=== PATIENT | female | born 1970 | race Caucasian/White ===

== ENCOUNTER 2017-04-06 16:35 | Emergency (ER) | payer BC | END 2017-04-06 19:00 | disposition home or self-care (01) | LOC: D.ER 16:35 | DX: M54.12 Radiculopathy, cervical region (principal); I10 Essential (primary) hypertension; E11.9 Type 2 diabetes mellitus without complications ==

== ENCOUNTER 2017-10-09 10:53 | Emergency (ER) | payer MEDICAID ==
[~2017-10-09] VITALS: Ht 157.5 cm; Wt 83.6 kg
[2017-10-09 11:19] VITALS: Ht 157.5 cm; Wt 83.6 kg
[2017-10-09] MEDS ORDERED: XANAX1 MG PO (11:26)
[2017-10-09] MEDS ORDERED: ALBUTEROL2.5 MG/3 M INH (11:26)
[2017-10-09] MEDS ORDERED: ANORO ELLIPTA1 EACH INH (11:27)
[2017-10-09] MEDS ORDERED: LIPITOR20 MG PO (11:27)
[2017-10-09] MEDS ORDERED: ABILIFY2 MG PO (11:27)
[2017-10-09] MEDS ORDERED: SOMA350 MG PO (11:28)
[2017-10-09] MEDS ORDERED: ESTRACE2 MG PO (11:29)
[2017-10-09] MEDS ORDERED: CELEXA40 MG PO (11:29)
[2017-10-09] MEDS ORDERED: FLUTICASONE PRO16 GM NASAL (11:30)
[2017-10-09] MEDS ORDERED: BUTALB-APAP-CA1 EACH PO (11:31)
[2017-10-09] MEDS ORDERED: HYSINGLA ER20 MG PO (11:31)
[2017-10-09] MEDS ORDERED: KLOR-CON 1010 MEQ PO (11:31)
[2017-10-09] MEDS ORDERED: HYDROCODONE-APA1 TAB PO (11:31)
[2017-10-09] MEDS ORDERED: LYRICA50 MG PO (11:32)
[2017-10-09] MEDS ORDERED: GLUCOPHAGE500 MG PO (11:32)
[2017-10-09] MEDS ORDERED: OMEPRAZOLE20 M1 PO (11:33)
[2017-10-09] MEDS ORDERED: OXYBUTYNIN CHLOR5 MG PO (11:33)
[2017-10-09] MEDS ORDERED: PROAIR HFA8.5 GM INH (11:33)
[2017-10-09] MEDS ORDERED: MAXZIDE 75/501 TAB PO (11:34)
[2017-10-09] MEDS ORDERED: ZOMIG5 MG/SPRAY NS (11:35)
[2017-10-09] MEDS ORDERED: LIDOCAINE50 GM TOPICAL (11:35)
[2017-10-09 12:11] LABS: BASOPHILS 0.3 % (0-2); EOSINOPHILS 3.7 % (0-7); HEMATOCRIT 45.1 % (36.0-48.0); HEMOGLOBIN 15.8 g/dL (12-16); IMMATURE GRANULOCYTES 0.2 % (0-5); LYMPHOCYTES 34.7 % (15-50); MCH 32.6 pg (26.0-34.0); MCV 93.2 fL (80.0-100.0); MEAN PLATELET VOLUME 10.9 fL (7.4-10.4); NEUTROPHILS 56.1 % (40-80); RBC 4.84 10x6/uL (4.00-5.40); RDW 13.4 % (11.5-14.5); WBC 6.4 10x3/uL (4.8-10.8)
[2017-10-09 12:17] LABS: PLATELET COUNT 163 10x3/uL (130-400)
[2017-10-09 12:21] LABS: APTT 27.5 SECONDS (22.8-39.4)
[2017-10-09 12:22] LABS: INR 0.92 (0.85-1.17); PROTIME 11.9 SECONDS (11.6-15.0)
[2017-10-09 12:23] LABS: D-DIMER-QUANTITATIVE < 0.27 ug/mLFEU (0.20-0.54)
[2017-10-09 12:28] LABS: ALBUMIN 3.4 g/dL (3.4-5.0); ALKALINE PHOSPHATASE 88 U/L (46-116); ALT (SGPT) 35 U/L (10-68); BILIRUBIN - TOTAL 0.22 mg/dL (0.2-1.3); CALC OSMOLALITY 276 mosm/kg (275-300); CARBON DIOXIDE 32.8 mmol/L (21.0-32.0); CHLORIDE - SERUM 104 mmol/L (98-107); CREATININE - SERUM 0.6 mg/dL (0.6-1.3); GLUCOSE 132 mg/dL (74-106); POTASSIUM - SERUM 3.9 mmol/L (3.5-5.1); PROTEIN - SERUM 6.7 g/dL (6.4-8.2); SODIUM 139 mmol/L (136-145); UREA NITROGEN 4 mg/dL (7-18); eGFR NON AFRICAN AMERICAN > 90 mL/min (90-120)
[2017-10-09 15:30] VITALS: BP 122/068
== END 2017-10-09 15:15 | disposition home or self-care (01) ==
LOC: D.ER 10:53
PROVIDERS: Family Medicine
DX: M25.562 Pain in left knee (principal); M79.662 Pain in left lower leg; M17.12 Unilateral primary osteoarthritis, left knee; E11.9 Type 2 diabetes mellitus without complications; G40.909 Epilepsy, unspecified, not intractable, without status epilepticus; Q05.9 Spina bifida, unspecified; K21.9 Gastro-esophageal reflux disease without esophagitis; F17.200 Nicotine dependence, unspecified, uncomplicated

== ENCOUNTER 2018-08-17 16:17 | Emergency (ER) | payer MEDICAID ==
[~2018-08-17 16:17] MED LIST: ABILIFY2 MG PO; ALBUTEROL2.5 MG/3 M INH; ANORO ELLIPTA1 EACH INH; BUTALB-APAP-CA1 EACH PO; CELEXA40 MG PO; ESTRACE2 MG PO; FLUTICASONE PRO16 GM NASAL; GLUCOPHAGE500 MG PO; HYDROCODONE-APA1 TAB PO; HYSINGLA ER20 MG PO; KLOR-CON 1010 MEQ PO; LIDOCAINE50 GM TOPICAL; LIPITOR20 MG PO; LYRICA50 MG PO; MAXZIDE 75/501 TAB PO; OMEPRAZOLE20 M1 PO; OXYBUTYNIN CHLOR5 MG PO; PROAIR HFA8.5 GM INH; SOMA350 MG PO; XANAX1 MG PO; ZOMIG5 MG/SPRAY NS
[2018-08-17 16:34] VITALS: BMI 34.8
[2018-08-17] MEDS ORDERED: ANORO ELLIPTA1 EACH INH (16:38)
[2018-08-17] MEDS ORDERED: BUTALB-APAP-CA1 EACH PO ×2 (16:40→17:00)
[2018-08-17] MEDS ORDERED: CYCLOBENZAPRINE10 MG PO (16:40)
[2018-08-17] MEDS ORDERED: AMBIEN5 MG PO (16:43)
[2018-08-17] MEDS ORDERED: ZOFRAN ODT4 MG/UDTAB PO (17:00)
[2018-08-17 17:30] VITALS: BP 158/99
== END 2018-08-17 17:43 | disposition home or self-care (01) ==
LOC: D.ER 16:17
DX: G43.909 Migraine, unspecified, not intractable, without status migrainosus (principal)

== ENCOUNTER 2018-08-19 17:10 | Emergency (ER) | payer MEDICAID ==
[~2018-08-19] VITALS: Ht 157.5 cm; Wt 90.9 kg
[~2018-08-19 17:10] MED LIST changes: +AMBIEN5 MG PO; +CYCLOBENZAPRINE10 MG PO; +ZOFRAN ODT4 MG/UDTAB PO
[2018-08-19 17:14] VITALS: Ht 157.5 cm; Wt 90.9 kg
[2018-08-19 19:05] VITALS: BP 134/87
== END 2018-08-19 19:05 | disposition home or self-care (01) ==
LOC: D.ER 17:10
DX: G43.009 Migraine without aura, not intractable, without status migrainosus (principal)

== ENCOUNTER 2018-08-25 23:47 | Inpatient (IN) | payer MEDICAID ==
[~2018-08-25] VITALS: Ht 157.5 cm; Wt 81.2 kg
[2018-08-26 00:35] LABS: BASOPHILS 0.6 % (0-2); EOSINOPHILS 2.7 % (0-7); HEMATOCRIT 39.8 % (36.0-48.0); HEMOGLOBIN 14.3 g/dL (12-16); IMMATURE GRANULOCYTES 0.4 % (0-5); LYMPHOCYTES 33.1 % (15-50); MCH 30.8 pg (26.0-34.0); MCHC 35.9 g/dL (31.0-37.0); MCV 85.8 fL (80.0-100.0); MEAN PLATELET VOLUME 10.8 fL (7.4-10.4); MONOCYTES 6.1 % (2-11); NEUTROPHILS 57.1 % (40-80); RBC 4.64 10x6/uL (4.00-5.40); RDW 13.1 % (11.5-14.5); WBC 8.5 10x3/uL (4.8-10.8)
[2018-08-26 00:38] LABS: PLATELET COUNT 125 10x3/uL (130-400)
[2018-08-26 00:41] LABS: APPEARANCE HAZY (CLEAR); BILIRUBIN NEGATIVE (NEGATIVE); COLOR YELLOW (YELLOW); GLUCOSE NEGATIVE (NEGATIVE); KETONE NEGATIVE (NEGATIVE); NITRITE POSITIVE (NEGATIVE); PROTEIN 1+ mg/dL (NEGATIVE); UROBILINOGEN NORMAL (NORMAL)
[2018-08-26 00:43] LABS: APTT 28.9 SECONDS (22.8-39.4); INR 1.09 (0.85-1.17); PROTIME 13.6 SECONDS (11.6-15.0)
[2018-08-26 00:46] LABS: BACTERIA MODERATE /hpf (NONE SEEN); EPITHELIAL CELLS 0-5 /hpf (0-5); RED CELLS - URINE 0-5 /hpf (0-5)
[2018-08-26 00:50] LABS: ALBUMIN 3.1 g/dL (3.4-5.0); ALKALINE PHOSPHATASE 149 U/L (46-116); ALT (SGPT) 63 U/L (10-68); BILIRUBIN - TOTAL 0.37 mg/dL (0.2-1.3); CALC OSMOLALITY 272 mosm/kg (275-300); CALCIUM 9.1 mg/dL (8.5-10.1); CHLORIDE - SERUM 95 mmol/L (98-107); CREATININE - SERUM 0.7 mg/dL (0.6-1.3); PROTEIN - SERUM 6.6 g/dL (6.4-8.2); SODIUM 133 mmol/L (136-145); UREA NITROGEN 9 mg/dL (7-18); eGFR NON AFRICAN AMERICAN > 90 mL/min (90-120)
[2018-08-26 00:51] LABS: GLUCOSE 240 mg/dL (74-106)
[2018-08-26 01:05] LABS: CKMB 0.2 U/L (0.0-3.6); CREATINE KINASE 68 UL (21-215)
[2018-08-26 01:06] LABS: TROPONIN-I < 0.017 ng/mL (0.000-0.060)
[2018-08-26 02:30] VITALS: BP 111/78
[2018-08-26] MEDS ORDERED: LEVAQUIN750 MG PO (02:36)
--- NOTE | 2018-08-26 03:00 | NUR ---
ORDERED ROCEPHIN DISCONTINUED AT 0300. IV FLUSHED AFTER DC'ING MEDICATION. ORDERED LEVAQUIN STARTED.
[2018-08-26 03:25] VITALS: BP 109/78
[2018-08-26 04:34] VITALS: BP 93/49; BMI 32.8
--- NOTE | 2018-08-26 08:04 | NUR ---
PATIENT RECIEVED FROM PREVIOUS SHIFT RESTING IN BED WITH NO NEEDS VOICED. REPORTS THAT SHE IS FEELING MUCH BETTER THIS AM. NO FEVER OR CHILLS LAST SHIFT.
[2018-08-26 08:55] VITALS: BP 95/71
[2018-08-26 14:49] VITALS: Ht 157.5 cm; Wt 81.2 kg
[2018-08-26 17:34] VITALS: BP 148/67
[2018-08-26 20:00] VITALS: BP 106/61
--- NOTE | 2018-08-26 21:00 | NUR ---
FSBS 344 8 UNITS OF INSULIN GIVEN PER SS.
[2018-08-27] VITALS: BP 98/58
--- NOTE | 2018-08-27 00:30 | NUR ---
PT FEVER 101.0 GIVEN TYLENOL PER MAY. WILL FALLOW UP
[2018-08-27 04:00] VITALS: BP 105/61
--- NOTE | 2018-08-27 05:20 | NUR ---
I have reviewed this patient and I concur with the Shift Assessment completed by the Licensed Practical Nurse today this shift.
--- NOTE | 2018-08-27 07:25 | NUR ---
PATIENT RECIEVED FROM PREVIOUS SHIFT RESTING WITH NO NEEDS VOICED. RESPIRATIONS NONLABORED, CL IN REACH
[2018-08-27 08:00] VITALS: BP 103/68
[2018-08-27 09:26] LABS: BASOPHILS 1.3 % (0-2); EOSINOPHILS 3.5 % (0-7); HEMATOCRIT 40.3 % (36.0-48.0); IMMATURE GRANULOCYTES 0.3 % (0-5); LYMPHOCYTES 48.3 % (15-50); MCH 30.4 pg (26.0-34.0); MCHC 34.7 g/dL (31.0-37.0); MCV 87.6 fL (80.0-100.0); MEAN PLATELET VOLUME 11.1 fL (7.4-10.4); NEUTROPHILS 42.6 % (40-80); PLATELET COUNT 118 10x3/uL (130-400); RDW 13.4 % (11.5-14.5)
[2018-08-27 09:27] LABS: WBC 6.1 10x3/uL (4.8-10.8)
[2018-08-27 09:39] LABS: CALC OSMOLALITY 280 mosm/kg (275-300); CALCIUM 8.8 mg/dL (8.5-10.1); CARBON DIOXIDE 31.2 mmol/L (21.0-32.0); CHLORIDE - SERUM 99 mmol/L (98-107); CREATININE - SERUM 0.8 mg/dL (0.6-1.3); GLUCOSE 251 mg/dL (74-106); POTASSIUM - SERUM 3.2 mmol/L (3.5-5.1); SODIUM 137 mmol/L (136-145); UREA NITROGEN 9 mg/dL (7-18); eGFR NON AFRICAN AMERICAN 81 mL/min (90-120)
[2018-08-27 13:07] VITALS: BP 177/78
--- NOTE | 2018-08-27 15:08 | NUR ---
PATIENT AMBULATES SEVERAL TIMES DURING THE DAY OUTSIDE TO SMOKE WITH . NORCO GIVEN FOR CHRONIC BACK PAIN
--- NOTE | 2018-08-27 19:15 | NUR ---
RECEIVED CARE FROM DAY NURSE. OUT OF ROOM AT THIS TIME.
[2018-08-27 20:00] VITALS: BP 112/77
[2018-08-28] VITALS: BP 102/61
[2018-08-28 04:00] VITALS: BP 97/60
[2018-08-28 05:51] LABS: BASOPHILS 1.3 % (0-2); EOSINOPHILS 3.8 % (0-7); HEMATOCRIT 41.1 % (36.0-48.0); HEMOGLOBIN 14.5 g/dL (12-16); IMMATURE GRANULOCYTES 0.4 % (0-5); LYMPHOCYTES 46.7 % (15-50); MCH 30.7 pg (26.0-34.0); MCHC 35.3 g/dL (31.0-37.0); MCV 87.1 fL (80.0-100.0); MEAN PLATELET VOLUME 11.1 fL (7.4-10.4); MONOCYTES 8.7 % (2-11); NEUTROPHILS 39.1 % (40-80); PLATELET COUNT 133 10x3/uL (130-400); RBC 4.72 10x6/uL (4.00-5.40); RDW 13.3 % (11.5-14.5)
[2018-08-28 06:03] LABS: ANION GAP 12.2 mmol/L (8-16); CARBON DIOXIDE 27.5 mmol/L (21.0-32.0); CREATININE - SERUM 0.9 mg/dL (0.6-1.3); POTASSIUM - SERUM 3.7 mmol/L (3.5-5.1)
[2018-08-28 09:12] VITALS: BP 118/78
--- NOTE | 2018-08-28 10:50 | NUR ---
ALERT AND ORIENTED WITH LUNGS CTA ANTERIOR W/O COUGH. S/L TO LT. A/C. NORCO GIVEN FOR GENERALIZED PAIN AND DISCOMFORT. ENCOURAGED TO USE CALL LIGHT FOR ASSSIT.
[2018-08-28] MEDS ORDERED: LEVAQUIN750 MG PO ×2 (12:14→20:06)
[2018-08-28 12:53] VITALS: BP 123/66
[2018-08-28] MEDS ORDERED: ZOFRAN ODT4 MG/UDTAB PO (20:06)
== END 2018-08-28 14:15 | disposition home or self-care (01) | DRG 193 ==
LOC: D.ER 23:47 → D.MS 08-26 02:51
PROVIDERS: Emergency Medicine; ADMIT Internal Medicine Nephrology; ATTEND Internal Medicine Nephrology
DX: J18.9 Pneumonia, unspecified organism (principal); J96.21 Acute and chronic respiratory failure with hypoxia; N39.0 Urinary tract infection, site not specified; E87.1 Hypo-osmolality and hyponatremia; F17.213 Nicotine dependence, cigarettes, with withdrawal; E87.6 Hypokalemia; E11.9 Type 2 diabetes mellitus without complications; J44.9 Chronic obstructive pulmonary disease, unspecified

== ENCOUNTER 2018-08-28 18:58 | Emergency (ER) | payer MEDICAID ==
[~2018-08-28] VITALS: Ht 157.5 cm; Wt 81.4 kg
[~2018-08-28 18:58] MED LIST changes: +LEVAQUIN750 MG PO
[2018-08-28 19:03] VITALS: Ht 157.5 cm; Wt 81.4 kg
[2018-08-28 19:47] LABS: HEMATOCRIT 41.2 % (36.0-48.0); HEMOGLOBIN 14.9 g/dL (12-16); MCH 30.8 pg (26.0-34.0); MCHC 36.2 g/dL (31.0-37.0); MCV 85.3 fL (80.0-100.0); MEAN PLATELET VOLUME 10.8 fL (7.4-10.4); PLATELET COUNT 131 10x3/uL (130-400); RBC 4.83 10x6/uL (4.00-5.40); RDW 13.2 % (11.5-14.5)
[2018-08-28 19:50] LABS: WBC 10.2 10x3/uL (4.8-10.8)
[2018-08-28] MEDS ORDERED: ZOFRAN ODT4 MG/UDTAB PO (20:06)
[2018-08-28] MEDS ORDERED: LEVAQUIN750 MG PO (20:06)
[2018-08-28 20:10] LABS: UDS - AMPHET NEGATIVE QUAL (NEGATIVE); UDS - BARB NEGATIVE QUAL (NEGATIVE); UDS - BENZO POSITIVE QUAL (NEGATIVE); UDS - COCAINE NEGATIVE QUAL (NEGATIVE); UDS - OPIATE POSITIVE QUAL (NEGATIVE); UDS - PCP NEGATIVE QUAL (NEGATIVE); UDS - THC POSITIVE QUAL (NEGATIVE)
[2018-08-28 20:10] LABS: ALKALINE PHOSPHATASE 175 U/L (46-116); ALT (SGPT) 89 U/L (10-68); BILIRUBIN - TOTAL 0.46 mg/dL (0.2-1.3); CALC OSMOLALITY 263 mosm/kg (275-300); CALCIUM 9.2 mg/dL (8.5-10.1); CARBON DIOXIDE 28.7 mmol/L (21.0-32.0); CHLORIDE - SERUM 92 mmol/L (98-107); CREATININE - SERUM 0.9 mg/dL (0.6-1.3); GLUCOSE 266 mg/dL (74-106); POTASSIUM - SERUM 3.6 mmol/L (3.5-5.1); SODIUM 127 mmol/L (136-145); UREA NITROGEN 12 mg/dL (7-18); eGFR NON AFRICAN AMERICAN 71 mL/min (90-120)
[2018-08-28 20:11] LABS: THYROID STIMULATING HORMONE 0.79 uIU/mL (0.36-3.74); TROPONIN-I < 0.017 ng/mL (0.000-0.060)
[2018-08-28 20:12] LABS: BASOPHILS 1 % (0-2); EOSINOPHILS 4 % (0-7); LYMPHOCYTES 25 % (15-50); MONOCYTES 8 % (2-11); NEUTROPHILS 61 % (40-80); PLATELET ESTIMATE DECREASED
[2018-08-28 20:13] LABS: APPEARANCE HAZY (CLEAR); BILIRUBIN NEGATIVE (NEGATIVE); COLOR YELLOW (YELLOW); GLUCOSE NEGATIVE (NEGATIVE); KETONE NEGATIVE (NEGATIVE); NITRITE NEGATIVE (NEGATIVE); PROTEIN NEGATIVE (NEGATIVE); UROBILINOGEN NORMAL (NORMAL)
[2018-08-28 20:14] LABS: BACTERIA FEW /hpf (NONE SEEN); EPITHELIAL CELLS 0-5 /hpf (0-5); RED CELLS - URINE 0-5 /hpf (0-5); WHITE CELLS - URINE 0-5 /hpf (0-5)
[2018-08-28 22:28] VITALS: BP 122/70
== END 2018-08-28 22:30 | disposition home or self-care (01) ==
LOC: D.ER 18:58
PROVIDERS: Family Medicine
DX: J18.9 Pneumonia, unspecified organism (principal); R94.5 Abnormal results of liver function studies; R11.2 Nausea with vomiting, unspecified

== ENCOUNTER 2018-09-18 02:41 | Emergency (ER) | payer MEDICAID ==
[~2018-09-18] VITALS: Ht 157.5 cm; Wt 83.6 kg
[2018-09-18 02:45] VITALS: Ht 157.5 cm; Wt 83.6 kg
[2018-09-18] MEDS ORDERED: LOMOTIL 2.5-0.1 EAC1 PO (02:57)
[2018-09-18 03:12] LABS: BASOPHILS 0.1 % (0-2); EOSINOPHILS 0.7 % (0-7); HEMATOCRIT 41.9 % (36.0-48.0); HEMOGLOBIN 14.5 g/dL (12-16); IMMATURE GRANULOCYTES 0.2 % (0-5); LYMPHOCYTES 29.7 % (15-50); MCH 31.3 pg (26.0-34.0); MCHC 34.6 g/dL (31.0-37.0); MCV 90.3 fL (80.0-100.0); MEAN PLATELET VOLUME 10.8 fL (7.4-10.4); MONOCYTES 6.7 % (2-11); NEUTROPHILS 62.6 % (40-80); RBC 4.64 10x6/uL (4.00-5.40); RDW 14.7 % (11.5-14.5)
[2018-09-18 03:15] LABS: PLATELET COUNT 159 10x3/uL (130-400)
[2018-09-18 03:23] LABS: APPEARANCE HAZY (CLEAR); BACTERIA MODERATE /hpf (NONE SEEN); BILIRUBIN NEGATIVE (NEGATIVE); COLOR YELLOW (YELLOW); EPITHELIAL CELLS RARE /hpf (0-5); GLUCOSE NEGATIVE (NEGATIVE); KETONE SMALL mg/dL (NEGATIVE); NITRITE NEGATIVE (NEGATIVE); PROTEIN NEGATIVE (NEGATIVE); RED CELLS - URINE 0-5 /hpf (0-5); UROBILINOGEN NORMAL (NORMAL)
[2018-09-18 03:30] LABS: UDS - AMPHET NEGATIVE QUAL (NEGATIVE); UDS - BARB NEGATIVE QUAL (NEGATIVE); UDS - BENZO POSITIVE QUAL (NEGATIVE); UDS - COCAINE NEGATIVE QUAL (NEGATIVE); UDS - OPIATE POSITIVE QUAL (NEGATIVE); UDS - PCP NEGATIVE QUAL (NEGATIVE); UDS - THC NEGATIVE QUAL (NEGATIVE)
[2018-09-18 03:31] LABS: ALBUMIN 2.8 g/dL (3.4-5.0); ALKALINE PHOSPHATASE 355 U/L (46-116); ALT (SGPT) 69 U/L (10-68); BILIRUBIN - TOTAL 0.36 mg/dL (0.2-1.3); CALC OSMOLALITY 280 mosm/kg (275-300); CALCIUM 8.5 mg/dL (8.5-10.1); CHLORIDE - SERUM 105 mmol/L (98-107); CREATININE - SERUM 0.7 mg/dL (0.6-1.3); LIPASE 104 U/L (73-393); POTASSIUM - SERUM 3.7 mmol/L (3.5-5.1); PROTEIN - SERUM 6.4 g/dL (6.4-8.2); SODIUM 140 mmol/L (136-145); UREA NITROGEN 9 mg/dL (7-18); eGFR NON AFRICAN AMERICAN > 90 mL/min (90-120)
[2018-09-18 03:34] LABS: GLUCOSE 161 mg/dL (74-106)
[2018-09-18] MEDS ORDERED: MACROBID100 MG PO (03:40)
[2018-09-18 06:56] VITALS: BP 102/66
== END 2018-09-18 06:57 | disposition home or self-care (01) ==
LOC: D.ER 02:41
PROVIDERS: Family Medicine
DX: K52.9 Noninfective gastroenteritis and colitis, unspecified (principal); R94.5 Abnormal results of liver function studies; K76.0 Fatty (change of) liver, not elsewhere classified; N39.3 Stress incontinence (female) (male); N39.0 Urinary tract infection, site not specified